=== PATIENT | male | born 1985 | race Caucasian/White ===

== ENCOUNTER 2023-10-20 00:39 | Emergency (ER) | payer OTHER, SELFPAY ==
[2023-10-20 00:45] VITALS: BP 132/69; PULSE 107; RESP 21; TEMP 36.8; O2SAT 97; BMI 19.9
--- NOTE | 2023-10-20 01:02 | XRR_ITS ---
PROCEDURE INFORMATION: Exam: XR Chest Exam date and time: 10/20/2023 1:04 AM Age: 38 years old Clinical indication: Shortness of breath; Patient HX: C/O SOB TECHNIQUE: Imaging protocol: Radiologic exam of the chest. Views: 1 view. COMPARISON: CR XR chest 1V [id number] 07/13/2019 7:11 AM FINDINGS: Lungs: No consolidation. Pleural spaces: No large pleural effusion. No pneumothorax. Heart/Mediastinum: Unremarkable. No cardiomegaly. Bones/joints: No acute abnormality. XR/XR chest 1V portable [id number] IMPRESSION: No acute findings.
--- NOTE | 2023-10-20 01:31 | ED_ITS ---
HPI - SOB/Dyspnea General: Chief Complaint: Shortness of Breath/Dyspnea Stated Complaint: sob coughing Time Seen by Provider: 10/20/23 00:56 History of Present Illness: HPI Narrative: 38-year-old male who says he has been si ck for about 2 weeks. He had cough with sputum production. No fever. Some wheezing. It hurts to cough or breathe in the chest. No leg swelling. Associated symptoms: Reports chest pain (With cough); Deny abdominal pain, dizziness, fever(s), nausea, palpitations or vomiting Review of Systems Const: Denies: fever(s), chills or body aches Eyes: Denies: change in vision Card: Reports: chest pain (With cough); Denies: palpitations Resp: Reports: dyspnea, productive cough and wheezing; Denies: non-productive cough GI: Denies: abdominal pain, nausea, vomiting, diarrhea or hematochezia Skin/Breast: Denies: rash Neuro: Denies: dizziness or confusion Physical Exam Const: COMMON NORMALS: no acute distress GENERAL APPEARANCE: cooperative; not ill appearing and not frail appearing HENMT: COMMON NORMALS: normocephalic, atraumatic and Normal external nose present HEAD & SCALP: normocephalic and atraumatic FACE & SINUS: normal facial exam and face symmetric NOSE: Normal external nose present Eye: COMMON NORMALS: Equal, round and reactive pupils present and EOMs intact bilaterally PUPIL: Yes Equal, round and reactive pupils present Neck/C-Spine: GENERAL: Yes trachea midline Chest: CHEST: Yes Symmetrical chest wall rise Resp: COMMON NORMALS: normal respiratory effort, No retractions and No use of accessory muscles AUSCULTATION: rhonchi Cardio: COMMON NORMALS: regular rate and regular rhythm RATE: regular rate RHYTHM: regular rhythm GI: COMMON NORMALS: Normal to inspection, nondistended, normoactive bowel sounds present Extremity: COMMON NORMALS: no pedal edema Neuro: WANDA COMA SCALE: document GCS findings [place] coma scale eye opening: Spontaneous Wanda coma scale verbal response: Orientated Wanda coma scale motor response: Obey commands [place] coma scale total score: 15 SENSORY EXAM: Yes extremities (intact) Psych: COMMON NORMALS: speech normal SPEECH: Yes normal speech Skin: COMMON NORMALS: no rashes or lesions noted GENERAL SKIN EXAM: no rashes or lesions noted Course Vital Signs: Vital signs: Vital Signs Temperature 98.3 F 10/20/23 00:45 Pulse Rate 102 H 10/20/23 02:23 Respiratory Rate 18 10/20/23 02:23 Blood Pressure 132/80 10/20/23 01:48 Pulse Oximetry 99 10/20/23 02:23 Oxygen Delivery Me thod Room Air 10/20/23 02:23 MDM - SOB/Dyspnea Medical Decision Making X-ray shows no acute findings. Saturations have been normal here. He is wheezy. He is given a breathing treatment here. He is also given some Solu- Medrol for the wheezing. He will be discharged on corticosteroids, antibiotics given he has been sick for 2 weeks, and an albuterol inhaler. Outpatient follow-up. Return for worsening symptoms. Lab Data Labs/Radiology: Radiology Impressions Chest X-Ray 10/20/23 01:02 IMPRESSION: No acute findings. All radiology interpretation(s) finalized by discharge Discharge Plan Discharge Patient Disposition: Home Clinical Impression: Acute bronchitis Condition: Stable Prescriptions: New Medrol ([place]) 4 mg tablets,dose pack See Rx Instructions .ROUTE .COMPLEX Qty: 21 0RF Rx Instructions: orally per package directions albuterol sulfate 90 mcg/actuation HFA aerosol inhaler 2 inh INHALATION Q4H PRN (Reason: shortness of breath or wheezing) Qty: 6.7 1RF doxycycline hyclate 100 mg tablet 100 mg PO BID 7 Days Qty: 14 0RF Discharge Orders: Discharge ED (Routine); Ordered 10/20/23 Ordered By: Warren Escamilla Patient Instructions: Acute Bronchitis (ED), Opioid Safety, Pain Management Activity Restrictions/Additional Instructions: Return for worsening chest pain or shortness of breath despite treatment, fever despite 2-3 doses of antibiotics, swelling in the legs, any other concerning symptoms. Coding Level of Care Code ED Chemist Steroids for Mireya Viera
[2023-10-20] MEDS: doxycycline 100 mg Tablet PO (01:46)
[2023-10-20] MEDS: ketorolac 30 mg/mL INJ IVP (01:46)
[2023-10-20 01:48] VITALS: BP 132/80; PULSE 95; RESP 18; O2SAT 99
[2023-10-20] MEDS: methylPREDNISolone sod succ 125 mg/2 mL INJ IVP (01:48)
[2023-10-20 02:19] VITALS: PULSE 98; RESP 18; O2SAT 98
[2023-10-20] MEDS: ipratropium-albuterol 3 mL Neb INHALATION (02:21)
[2023-10-20 02:23] VITALS: PULSE 102; RESP 18; O2SAT 99
[2023-10-20 02:40] VITALS: BP 124/72; PULSE 103; RESP 18; O2SAT 98
== END 2023-10-20 02:35 | disposition home or self-care (01) ==
PROVIDERS: Emergency Provider Emergency Medicine
DX: J20.9 Acute bronchitis, unspecified (principal)
CPT/HCPCS: 71045; 94640; 96374; 96375; 99284; J1885; J2930

== ENCOUNTER 2024-04-01 16:30 | Emergency (ER) | payer OTHER, BC, MEDICAID, SELFPAY ==
[2024-04-01 16:34] VITALS: BP 128/73; PULSE 97; RESP 17; TEMP 36.4; O2SAT 97; BMI 21.7
--- NOTE | 2024-04-01 16:39 | W.ED.EXTPRO ---
HPI - Extremity Problem General: Chief complaint: Extremity Problem,Nontraumatic Stated complaint: knee pain Time Seen by Provider: 04/01/24 16:38 History of Present Illness: 38-year-old male patient comes in today for bilateral knee pain. Patient reports for the last 2 weeks he has been performing PT in [employer]. Patient reports increased pain and discomfort. Patient appears nontoxic. Patient appears no acute distress. No significant swelling or deformity is noted to either knee. Related Data Previous Rx's Medication Instructions Recorded albuterol sulfate 90 mcg/actuation 2 inh inhalation Q4H PRN shortness 10/20/23 aerosol inhaler of breath or wheezing #6.7 grams methylprednisolone 4 mg tablets in See Rx Instructions PO .COMPLEX 10/20/23 a dose pack (Medrol ([place])) #21 ea diclofenac sodium 75 mg 75 mg PO BID #20 tabs 04/01/24 tablet,delayed release Allergies Allergy/AdvReac Type Severity Reaction Status Date / Time No Known Allergies Allergy Verified 10/20/23 00:48 Review of Systems General: Reports: 10 or more systems reviewed and unremarkable except in HPI and below Musc: Reports: joint pain (Bilateral knee) Physical Exam Const: COMMON NORMALS: patient oriented x3 HENMT: COMMON NORMALS: normocephalic HEAD & SCALP: normocephalic Neck/C-Spine: COMMON NORMALS: full ROM Resp: COMMON NORMALS: normal respiratory effort and clear to auscultation bilaterally AUSCULTATION: clear to auscultation bilaterally Cardio: COMMON NORMALS: regular rate RATE: regular rate GI: COMMON NORMALS: non-tender Back/Pelvis: COMMON NORMALS: thoracic and lumbar spine normal to inspection Extremity: RIGHT LOWER EXTREMITY: Yes knee joint (Anterior tenderness) Right knee: Yes inspection, Yes palpation and Yes ROM LEFT LOWER EXTREMITY: Yes knee joint (Anterior tenderness) Left knee: Yes inspection, Yes palpation and Yes ROM Neuro: COMMON NORMALS: patient oriented x3 Skin: COMMON NORMALS: turgor normal GENERAL SKIN EXAM: turgor normal Course Vital Signs: Vital signs: Vital Signs Temperature 97.6 F 04/01/24 16:34 Pulse Rate 81 04/01/24 17:56 Respiratory Rate 17 04/01/24 16:34 Blood Pressure 110/70 04/01/24 17:56 Pulse Oximetry 98 04/01/24 17:56 Oxygen Delivery Me thod Room Air 04/01/24 16:34 MDM - Extremity (Nontraumatic) Medical Decision Making 38-year-old male patient comes in today for complaints of pain to bilateral knees. Patient reports pain is worsened over the last 2 weeks since he started doing exercise for the [employer]. Exam is unremarkable. Differential diagnosis includes meniscal injury, knee sprain, patellofemoral syndrome. Most likely this is due to the patient's increase activity and exercise. Although he may have a old injury that is aggravated most likely is secondary to runner's knee or patellofemoral syndrome. Recommended anti-inflammatory and Tylenol. Otherwise ice packs. Patient and family both reported understanding. Lab Data Radiology Impressions Knee X-Ray 04/01/24 16:40 IMPRESSION: No acute findings. 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, unspecified knee Condition: Stable Prescriptions: New diclofenac sodium 75 mg tablet,delayed release (DR/EC) 75 mg PO BID Qty: 20 0RF No Action Medrol ([place]) 4 mg tablets,dose pack See Rx Instructions .ROUTE .COMPLEX Qty: 21 0RF Rx Instructions: orally per package directions albuterol sulfate 90 mcg/actuation HFA aerosol inhaler 2 inh INHALATION Q4H PRN (Reason: shortness of breath or wheezing) Qty: 6.7 1RF Discharge Orders: Discharge ED (Routine); Ordered 04/01/24 Ordered By: David Hernandez Discharge Diet: Usual diet Discharge Activity: Increase activity as tolerated Patient Instructions: Patellofemoral Pain Syndrome (ED) Activity Restrictions/Additional Instructions: Use ice to help with pain and discomfort. Light activity until pain improves. Take diclofenac 75 mg 1 tablet twice a day for the next 10 days for pain and inflammation. You can use acetaminophen for further pain relief. Do not use naproxen or Aleve ibuprofen with diclofenac. Follow-up with primary care for further recommendations. Return to ER for new concerns. Coding Level of Care Code ED Publishing Manager for Mireya Viera
--- NOTE | 2024-04-01 16:40 | XRR_ITS ---
PROCEDURE INFORMATION: Exam: XR Right Knee Exam date and time: 04/01/2024 4:55 PM Age: 38 years old Clinical indication: Pain; Knee; Right; Additional info: Edward knee pain TECHNIQUE: Imaging protocol: Radiologic exam of the right knee. Views: 3 views. COMPARISON: No relevant prior studies available. FINDINGS: Bones/joints: Normal. Soft tissues: Normal. XR/XR knee RT 3V* [id number] IMPRESSION: No acute findings.
--- NOTE | 2024-04-01 16:40 | XR_ITS ---
WS: [id number] Examination: XR knee LT 3V* [id number] Reason for Exam: phoebe knee pain Date: 04/01/2024 Comparison: 08/24/2013 Findings: The bone density is maintained. There is no destruction. There is no displaced fracture or dislocation. A small joint effusion is suspected XR/XR knee LT 3V* [id number] Impression: No acute bony abnormality is identified.
[2024-04-01 17:56] VITALS: BP 110/70; PULSE 81; O2SAT 98
== END 2024-04-01 17:57 | disposition home or self-care (01) ==
PROVIDERS: Emergency Provider Nurse Practitioner Family
DX: M22.40 Chondromalacia patellae, unspecified knee (principal)
CPT/HCPCS: 73562; 99283

== ENCOUNTER → 2025-06-21 15:30 | Outpatient (BNVA) | payer BC, MEDICAID, SELFPAY | PROVIDERS: Visit Provider Orthopaedic Surgery | DX: M54.2 Cervicalgia (principal); M54.9 Dorsalgia, unspecified; M54.16 Radiculopathy, lumbar region; M25.569 Pain in unspecified knee | CPT/HCPCS: 72050; 72110 ==

== ENCOUNTER 2025-07-01 09:03 | Outpatient (CLI) | payer BC, MEDICAID, SELFPAY ==
--- NOTE | 2025-07-01 08:45 | MR_ITS ---
WS: [id number] MRI CERVICAL SPINE NONCONTRAST HISTORY: Neck pain COMPARISON: None available. Technique: Multiplanar, multisequence noncontrast imaging of the cervical spine. Normal cervical alignment with no compression fracture or significant disc space narrowing. Signal within the cervical cord is normal. Visualized posterior fossa is unremarkable. Craniocervical junction, C1 and C2 relationship, odontoid process and soft tissues are normal. C2-C3: Normal. C3-C4: Normal. C4-C5: Normal. C5-C6: Mild disc bulging and facet arthritis. No stenosis. C6-C7: Very mild facet arthritis. No stenosis. C7-T1: Normal. Paraspinal soft tissue are normal. MR/MR cervical spin wo con* [id number] IMPRESSION: 1. Mild facet joint arthritis at C5-6 and C6-7. 2. No stenosis or disc protrusions.
--- NOTE | 2025-07-01 09:09 | MR_ITS ---
WS: [id number] MRI LUMBAR SPINE NONCONTRAST HISTORY: LUMBAR BACK PAIN COMPARISON: None available. TECHNIQUE: Sagittal and axial multisequence imaging is submitted. Normal lumbar alignment with no compression fractures or marrow edema. Disc spaces and vertebral body heights are well-preserved. Conus terminates normally at L1-2 disc level. L1-L2: Normal. L2-L3: Normal. L3-L4: Mild annular disc bulging with mild ligamentum flavum and facet arthritis. There is mild disc encroachment into the subarticular recesses and contacting the traversing L4 nerve roots. Mild subarticular recess and bilateral foraminal stenosis. L4-L5: Mild annular disc bulging encroaching upon the subarticular recesses and traversing L5 nerve roots. Minimal contact on the L5 nerve roots. Disc bulges into the foramina with mild to moderate foraminal stenosis. L5-S1: Mild disc bulging with a central broad-based disc protrusion and annular fissure. Very slight encroachment upon the S1 nerve roots but no displacement. Mild to moderate bilateral foraminal stenosis. MR/MR lumbar spine wo con* [id number] IMPRESSION: 1. No high-grade central stenosis. 2. Mild to moderate foraminal stenosis at L4-5. Mild disc bulging with minimal contact on the traversing L5 nerve roots. 3. Mild disc bulging with a central broad-based disc protrusion at L5-S1. Mild to moderate bilateral foraminal stenosis. 4. Mild disc encroachment upon the subarticular recesses of L3-4 with minimal contact on the traversing L4 nerve roots. Mild subarticular recess and foramina l stenosis.
== END 2025-07-01 09:04 | disposition home or self-care (01) ==
LOC: RAD 09:04
PROVIDERS: Visit Provider Orthopaedic Surgery
DX: M54.2 Cervicalgia (principal); M47.896 Other spondylosis, lumbar region; M51.370 Other intervertebral disc degeneration, lumbosacral region with discogenic back pain only; M48.07 Spinal stenosis, lumbosacral region
CPT/HCPCS: 72141; 72148